=== PATIENT | female | born 1945 | race Caucasian/White ===

== ENCOUNTER 2019-08-29 14:27 | Emergency (ER) | payer MEDICARE ==
[~2019-08-29] VITALS: Ht 170.2 cm; Wt 65.9 kg
[~2019-08-29 14:27] MED LIST: NO HOME MEDICATIONS
[2019-08-29] MEDS ORDERED: NORCO 325 MG-51 TA1 PO (16:16)
[2019-08-29 16:28] VITALS: BP 195/91
== END 2019-08-29 16:25 | disposition home or self-care (01) ==
LOC: ED 14:27
DX: S52.502A Unspecified fracture of the lower end of left radius, initial encounter for closed fracture (principal); S52.602A Unspecified fracture of lower end of left ulna, initial encounter for closed fracture; F17.210 Nicotine dependence, cigarettes, uncomplicated; Z90.49 Acquired absence of other specified parts of digestive tract; W01.0XXA Fall on same level from slipping, tripping and stumbling without subsequent striking against object, initial encounter; Y92.410 Unspecified street and highway as the place of occurrence of the external cause

== ENCOUNTER 2019-09-10 14:44 | Emergency (ER) | payer MEDICARE ==
[~2019-09-10] VITALS: Ht 170.2 cm; Wt 68.2 kg
[~2019-09-10 14:44] MED LIST changes: +NORCO 325 MG-51 TA1 PO
[2019-09-10] MEDS ORDERED: HCTZ 25MG25 MG PO (15:58)
[2019-09-10 16:00] VITALS: BP 179/96
== END 2019-09-10 16:00 | disposition home or self-care (01) ==
LOC: ED 14:44
DX: R03.0 Elevated blood-pressure reading, without diagnosis of hypertension (principal)

== ENCOUNTER → 2019-09-26 | Outpatient (CLI) | payer MEDICARE ==
[2019-09-10 16:00] VITALS: BP 179/96
[~2019-09-26] MED LIST changes: +HCTZ 25MG25 MG PO
== END ==
LOC: RAD 13:00
DX: M43.8X2 Other specified deforming dorsopathies, cervical region (principal); G31.9 Degenerative disease of nervous system, unspecified; J43.9 Emphysema, unspecified; J98.4 Other disorders of lung; W19.XXXA Unspecified fall, initial encounter

== ENCOUNTER 2019-12-16 13:30 | Outpatient (RCR) | payer MEDICARE | END 2020-01-22 | disposition still patient (30) | LOC: OT | DX: S52.572D Other intraarticular fracture of lower end of left radius, subsequent encounter for closed fracture with routine healing (principal) ==

== ENCOUNTER → 2020-06-21 | Outpatient (CLI) | payer MEDICARE | LOC: RAD 09:40 | DX: M43.8X6 Other specified deforming dorsopathies, lumbar region (principal) ==

== ENCOUNTER → 2020-08-13 | Outpatient (CLI) | payer MEDICARE ==
[2020-08-13 10:00] LABS: BASO # 0.1 (0.02-0.10); EOS # 0.1 (0.04-0.40); EOS % 1.6 % (1.0-5.0); HEMATOCRIT 41.1 % (37.0-47.0); HEMOGLOBIN 13.5 g/dL (12.5-16.0); LYMPH# 2.4 (1.50-4.00); MEAN CELL VOLUME 93 fl (78-100); MEAN CORPUSCULAR HEMOGLOBIN 31 pg (27-31); MEAN CORPUSCULAR HGB CONC 33 g/dL (33-37); MEAN PLATELET VOLUME 9.1 fl (7.4-10.4); MONO # 0.6 (0.20-0.80); NEU # 4.4 (1.40-6.50); PLATELET COUNT 290 K/mm3 (130-400); RED BLOOD COUNT 4.41 M/mm3 (4.10-5.30); RED CELL DISTRIBUTION WIDTH 15.5 % (11.5-14.5); WHITE BLOOD COUNT 7.6 K/mm3 (4.8-10.8)
[2020-08-13 10:56] LABS: ALBUMIN 4.3 g/dL (3.4-4.8)
[2020-08-13 10:59] LABS: TOTAL PROTEIN 7.7 g/dL (6.2-8.1)
[2020-08-13 11:00] LABS: TOTAL BILIRUBIN 0.5 mg/dL (0.2-1.2)
== END ==
LOC: LAB 09:45
PROVIDERS: Family Medicine
DX: Z00.00 Encounter for general adult medical examination without abnormal findings (principal); E78.5 Hyperlipidemia, unspecified

== ENCOUNTER → 2022-02-11 | Outpatient (CLI) | payer MEDICARE ==
[2022-02-11 16:54] LABS: BASO # 0.05 K/mm3 (0.02-0.10); EOS # 0.13 K/mm3 (0.04-0.40); EOS % 1.4 % (1.0-5.0); HEMATOCRIT 42.1 % (37.0-47.0); HEMOGLOBIN 13.9 g/dL (12.5-16.0); LYMPH# 3.12 K/mm3 (1.50-4.00); MEAN CELL VOLUME 94 fl (78-100); MEAN CORPUSCULAR HEMOGLOBIN 31 pg (27-31); MEAN CORPUSCULAR HGB CONC 33 g/dL (33-37); MEAN PLATELET VOLUME 9.6 fl (7.4-10.4); NEU # 5.21 K/mm3 (1.40-6.50); PLATELET COUNT 219 K/mm3 (130-400); RED BLOOD COUNT 4.46 M/mm3 (4.10-5.30); RED CELL DISTRIBUTION WIDTH 15.1 % (11.5-14.5); WHITE BLOOD COUNT 9.1 K/mm3 (4.8-10.8)
[2022-02-11 17:00] LABS: ALBUMIN 4.4 g/dL (3.4-4.8); POTASSIUM 3.7 mmol/L (3.5-5.1)
[2022-02-11 17:01] LABS: CALCIUM 10.1 mg/dL (8.3-10.5)
[2022-02-11 17:02] LABS: TOTAL PROTEIN 7.7 g/dL (6.2-8.1)
[2022-02-11 17:04] LABS: TOTAL BILIRUBIN 0.4 mg/dL (0.2-1.2)
== END ==
LOC: RAD 16:16 → LAB 16:16
PROVIDERS: Family Medicine
DX: M19.072 Primary osteoarthritis, left ankle and foot (principal)

== ENCOUNTER → 2022-03-05 | Outpatient (CLI) | payer MEDICARE | LOC: RAD 08:47 | DX: I12.9 Hypertensive chronic kidney disease with stage 1 through stage 4 chronic kidney disease, or unspecified chronic kidney disease (principal); N18.31 Chronic kidney disease, stage 3a ==

== ENCOUNTER → 2022-03-12 | Outpatient (CLI) | payer MEDICARE | LOC: VAS 12:25 | DX: M79.605 Pain in left leg (principal); M79.89 Other specified soft tissue disorders ==

== ENCOUNTER → 2022-04-09 | Outpatient (CLI) | payer MEDICARE ==
[2022-04-09 12:32] LABS: BASO # 0.05 K/mm3 (0.02-0.10); EOS % 1.3 % (1.0-5.0); HEMOGLOBIN 13.7 g/dL (12.5-16.0); LYMPH# 2.53 K/mm3 (1.50-4.00); MEAN CELL VOLUME 93 fl (78-100); MEAN CORPUSCULAR HEMOGLOBIN 31 pg (27-31); MEAN CORPUSCULAR HGB CONC 33 g/dL (33-37); MEAN PLATELET VOLUME 9.1 fl (7.4-10.4); MONO # 0.67 K/mm3 (0.20-0.80); NEU # 4.59 K/mm3 (1.40-6.50); PLATELET COUNT 244 K/mm3 (130-400); RED BLOOD COUNT 4.43 M/mm3 (4.10-5.30); RED CELL DISTRIBUTION WIDTH 14.8 % (11.5-14.5)
[2022-04-09 12:36] LABS: ALBUMIN 4.3 g/dL (3.4-4.8); POTASSIUM 4.1 mmol/L (3.5-5.1)
[2022-04-09 12:37] LABS: CALCIUM 10.1 mg/dL (8.3-10.5)
[2022-04-09 12:38] LABS: TOTAL PROTEIN 7.4 g/dL (6.2-8.1)
[2022-04-09 12:40] LABS: TOTAL BILIRUBIN 0.5 mg/dL (0.2-1.2)
== END ==
LOC: LAB 12:08
PROVIDERS: Internal Medicine Nephrology
DX: I12.9 Hypertensive chronic kidney disease with stage 1 through stage 4 chronic kidney disease, or unspecified chronic kidney disease (principal); N18.31 Chronic kidney disease, stage 3a

== ENCOUNTER → 2022-04-10 | Outpatient (CLI) | payer MEDICARE ==
[2022-04-10 14:41] LABS: URINE APPEARANCE CLEAR; URINE BILIRUBIN NEGATIVE (NEGATIVE); URINE BLOOD NEGATIVE (NEGATIVE); URINE COLOR YELLOW; URINE GLUCOSE NEGATIVE (NEGATIVE); URINE KETONE NEGATIVE (NEGATIVE); URINE LEUKOCYTE ESTERASE 1+ (NEGATIVE); URINE NITRATE NEGATIVE (NEGATIVE); URINE PROTEIN(semi-quant) TRACE (NEGATIVE); URINE UROBILINOGEN NORMAL (NORMAL)
== END ==
LOC: LAB 13:55
PROVIDERS: Internal Medicine Nephrology
DX: I12.9 Hypertensive chronic kidney disease with stage 1 through stage 4 chronic kidney disease, or unspecified chronic kidney disease (principal); N18.31 Chronic kidney disease, stage 3a

== ENCOUNTER 2022-05-08 12:57 | Outpatient (RCR) | payer MEDICARE | END 2022-05-28 | disposition still patient (30) | LOC: PT | DX: M76.822 Posterior tibial tendinitis, left leg (principal); M76.821 Posterior tibial tendinitis, right leg; M72.2 Plantar fascial fibromatosis; M76.72 Peroneal tendinitis, left leg; M62.579 Muscle wasting and atrophy, not elsewhere classified, unspecified ankle and foot ==

== ENCOUNTER → 2022-06-10 | Outpatient (CLI) | payer MEDICARE | LOC: MAMMO 15:38 | DX: Z12.31 Encounter for screening mammogram for malignant neoplasm of breast (principal) ==

== ENCOUNTER → 2022-06-12 | Outpatient (CLI) | payer MEDICARE | LOC: MAMMO 12:15 | DX: N63.11 Unspecified lump in the right breast, upper outer quadrant (principal) ==

== ENCOUNTER → 2022-07-23 | Outpatient (CLI) | payer MEDICARE ==
[2022-07-23 14:59] LABS: HEMATOCRIT 38.1 % (37.0-47.0); HEMOGLOBIN 12.9 g/dL (12.5-16.0); MEAN PLATELET VOLUME 9.3 fl (7.4-10.4); RED BLOOD COUNT 4.04 M/mm3 (4.10-5.30); RED CELL DISTRIBUTION WIDTH 14.4 % (11.5-14.5); WHITE BLOOD COUNT 8.2 K/mm3 (4.8-10.8)
[2022-07-23 15:10] LABS: POTASSIUM 3.7 mmol/L (3.5-5.1)
[2022-07-23 15:12] LABS: CALCIUM 9.8 mg/dL (8.3-10.5)
== END ==
LOC: LAB 14:29
PROVIDERS: Internal Medicine Interventional Cardiology
DX: I70.223 Atherosclerosis of native arteries of extremities with rest pain, bilateral legs (principal)

== ENCOUNTER → 2022-10-21 | Outpatient (CLI) | payer MEDICARE ==
[2022-10-21 12:25] LABS: POTASSIUM 3.8 mmol/L (3.5-5.1)
[2022-10-21 12:27] LABS: CALCIUM 10.1 mg/dL (8.3-10.5)
== END ==
LOC: LAB 11:34
PROVIDERS: Internal Medicine Nephrology
DX: I12.9 Hypertensive chronic kidney disease with stage 1 through stage 4 chronic kidney disease, or unspecified chronic kidney disease (principal); N18.31 Chronic kidney disease, stage 3a

== ENCOUNTER → 2023-10-14 | Outpatient (CLI) | payer MEDICARE ==
[2023-10-14 11:00] LABS: CALCIUM 9.7 mg/dL (8.3-10.5)
== END ==
LOC: LAB 10:37
PROVIDERS: Internal Medicine Nephrology
DX: I12.9 Hypertensive chronic kidney disease with stage 1 through stage 4 chronic kidney disease, or unspecified chronic kidney disease (principal); N18.31 Chronic kidney disease, stage 3a

== ENCOUNTER → 2023-10-23 | Outpatient (CLI) | payer MEDICARE | LOC: LAB 09:24 | DX: E78.5 Hyperlipidemia, unspecified (principal) ==

== ENCOUNTER → 2024-04-11 | Outpatient (CLI) | payer MEDICARE ==
[2024-04-11 09:26] LABS: CALCIUM 10.1 mg/dL (8.3-10.5)
== END ==
LOC: LAB 09:02
PROVIDERS: Internal Medicine Nephrology
DX: I12.9 Hypertensive chronic kidney disease with stage 1 through stage 4 chronic kidney disease, or unspecified chronic kidney disease (principal); N18.31 Chronic kidney disease, stage 3a

== ENCOUNTER → 2024-10-14 | Outpatient (CLI) | payer MEDICARE ==
[2024-10-14 10:20] LABS: CALCIUM 9.3 mg/dL (8.3-10.5)
== END ==
LOC: LAB 09:52
PROVIDERS: Internal Medicine Nephrology
DX: I12.9 Hypertensive chronic kidney disease with stage 1 through stage 4 chronic kidney disease, or unspecified chronic kidney disease (principal); N18.31 Chronic kidney disease, stage 3a